=== PATIENT | female | born 2000 | race Caucasian/White ===

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

== ENCOUNTER 2020-01-19 18:39 | Emergency (ER) | payer BC, OTHER ==
[2020-01-19] MEDS ORDERED: Lactated Ringers 1,000 ML IV ONE (19:19)
[2020-01-19] MEDS ORDERED: Ketorolac 30 MG/ML SDV IVPUSH ONE (19:19)
--- NOTE | 2020-01-19 19:36 | EDM.PDOC ---
ED HPI GENERAL MEDICAL PROBLEM - General Chief Complaint: Respiratory Problem Stated Complaint: FLU SYMPTOMS Time Seen by Provider: 01/19/20 18:54 - History of Present Illness INITIAL COMMENTS - FREE TEXT/NARRATIVE: 19-year-old female with minimal past medical problems presenting with over 1 week of cough shortness of breath myalgias chills nausea vomiting and diarrhea associated with a burning epigastric pain. Symptoms constant and steadily worsening no syncope or near syncope. 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 History: Reports: Endometriosis Other DINING CHAIR SEAT CUSHION TRIMMER History: "Suspected endometriosis" Psychiatric History: Reports: Depression - Infectious Disease History Infectious Disease History: Reports: Chicken Pox - Past Surgical History HEENT Surgical History: Reports: Myringotomy w Tube(s) Social & Family History - Family History Family Medical History: Noncontributory - Tobacco Use Smoking Status *Q: Current Every Day Smoker Years of Tobacco use: 7 Packs/Tins Daily: 1 - Caffeine Use Caffeine Use: Reports: Coffee - Recreational Drug Use Recreational Drug Use: Yes Recreational Drug Type: Reports: Marijuana/Hashish Recreational Drug Use Frequency: Daily ED ROS GENERAL - Review of Systems Review Of Systems: See Below Free Text/Narrative/Comment: General: Per HPI Skin: No rash. Eyes: No vision problems. ENT: No sore throat. Neck: No neck stiffness. Respiratory: Per HPI Cardiac: No chest pain. Gastrointestinal: Per HPI Urinary: No dysuria. Musculoskeletal: No myalgias/arthralgias. Neurologic: No headache. ED EXAM, GENERAL - Physical Exam Exam: See Below Free Text/Narrative:: General Appearance: No acute distress, appears comfortable Skin: No rash HEENT: Normocephalic/atraumatic, sclera anicteric, mucous membranes moist Neck: Normal range of motion Chest and Lungs: Bilateral breath sounds, clear to auscultation Cardiovascular: Mildly tachycardic rate and rhythm, no murmur Abdomen: Soft, non-tender Back: Normal Musculoskeletal: No edema or tenderness Neurologic: Awake, alert, no obvious deficits, moving all extremities Psychiatric: Appropriate, cooperative Course - Vital Signs Last Recorded V/S: Last Vital Signs Temp 97.1 F 01/19/20 18:54 Pulse 118 H 01/19/20 18:54 Resp 18 01/19/20 18:54 BP 156/107 H 01/19/20 18:54 Pulse Ox 96 01/19/20 18:54 - Orders/Labs/Meds Orders: Active Orders 24 hr Category Date Time Status CORONAVIRUS COVID-19 PCR PH[facility] Stat Lab 01/19/20 19:36 Received Labs: Laboratory Tests 01/19/20 01/19/20 01/19/20 Range/Units 19:36 19:53 19:53 WBC 10.84 (4.0-11.0) K/uL RBC 5.07 (4.30-5.90) M/uL Hgb 15.4 (12.0-16.0) g/dL Hct 45.9 (36.0-46.0) % MCV 90.5 (80.0-98.0) fL MCH 30.4 (27.0-32.0) pg MCHC 33.6 (31.0-37.0) g/dL RDW Std Deviation 45.3 (28.0-62.0) fl RDW Coeff of Skyler 14 (11.0-15.0) % Plt Count 319 (150-400) K/uL MPV 9.70 (7.40-12.00) fL Neut % (Auto) 55.2 (48.0-80.0) % Lymph % (Auto) 37.4 (16.0-40.0) % [place] % (Auto) 6.8 (0.0-15.0) % Eos % (Auto) 0.4 (0.0-7.0) % Baso % (Auto) 0.2 (0.0-1.5) % Neut # (Auto) 6.0 H (1.4-5.7) K/uL Lymph # (Auto) 4.1 H (0.6-2.4) K/uL [place] # (Auto) 0.7 (0.0-0.8) K/uL Eos # (Auto) 0.0 (0.0-0.7) K/uL Baso # (Auto) 0.0 (0.0-0.1) K/uL Nucleated RBC % 0.0 /100WBC Nucleated RBCs # 0 K/uL Sodium 139 (136-145) mmol/L Potassium 3.9 (3.5-5.1) mmol/L Chloride 103 (98-107) mmol/L Carbon Dioxide 25.7 (21.0-32.0) mmol/L BUN 7 (7.0-18.0) mg/dL Creatinine 0.8 (0.6-1.0) mg/dL Est Cr Clr Drug Dosing 100.94 mL/min Estimated GFR (MDRD) > 60.0 ml/min Glucose 87 (74-106) mg/dL Calcium 9.8 (8.5-10.1) mg/dL Magnesium (1.8-2.4) mg/dL Total Bilirubin 1.2 H (0.2-1.0) mg/dL AST 15 (15-37) IU/L ALT 27 (14-63) IU/L Alkaline Phosphatase 54 (46-116) U/L Total Protein 8.3 H (6.4-8.2) g/dL Albumin 4.2 (3.4-5.0) g/dL Globulin 4.1 H (2.6-4.0) g/dL Albumin/Globulin Ratio 1.0 (0.9-1.6) Lipase 85 (73-393) U/L Urine Color Urine Appearance Urine pH (5.0-8.0) Ur Specific [place] (1.001-1.035) Urine Protein (NEGATIVE) mg/dL Urine Glucose (UA) (NEGATIVE) mg/dL Urine Ketones (NEGATIVE) mg/dL Urine Occult Blood (NEGATIVE) Urine Nitrite (NEGATIVE) Urine Bilirubin (NEGATIVE) Urine Urobilinogen (<2.0) EU/dL Ur Leukocyte Esterase (NEGATIVE) Urine RBC (0-2/HPF) Urine WBC (0-5/HPF) Ur Epithelial Cells (NONE-FEW) Amorphous Sediment (NEGATIVE) Urine Bacteria (NEGATIVE) Urine Mucus (NONE-MOD) Urine HCG, Qual (NEGATIVE) SARS CoV-2 RNA Rapid CARMELINA NEGATIVE (NEGATIVE) 01/19/20 01/19/20 01/19/20 Range/Units 19:53 21:32 21:32 WBC (4.0-11.0) K/uL RBC (4.30-5.90) M/uL Hgb (12.0-16.0) g/dL Hct (36.0-46.0) % MCV (80.0-98.0) fL MCH (27.0-32.0) pg MCHC (31.0-37.0) g/dL RDW Std Deviation (28.0-62.0) fl RDW Coeff of Skyler (11.0-15.0) % Plt Count (150-400) K/uL MPV (7.40-12.00) fL Neut % (Auto) (48.0-80.0) % Lymph % (Auto) (16.0-40.0) % [place] % (Auto) (0.0-15.0) % Eos % (Auto) (0.0-7.0) % Baso % (Auto) (0.0-1.5) % Neut # (Auto) (1.4-5.7) K/uL Lymph # (Auto) (0.6-2.4) K/uL [place] # (Auto) (0.0-0.8) K/uL Eos # (Auto) (0.0-0.7) K/uL Baso # (Auto) (0.0-0.1) K/uL Nucleated RBC % /100WBC Nucleated RBCs # K/uL Sodium (136-145) mmol/L Potassium (3.5-5.1) mmol/L Chloride (98-107) mmol/L Carbon Dioxide (21.0-32.0) mmol/L BUN (7.0-18.0) mg/dL Creatinine (0.6-1.0) mg/dL Est Cr Clr Drug Dosing mL/min Estimated GFR (MDRD) ml/min Glucose (74-106) mg/dL Calcium (8.5-10.1) mg/dL Magnesium 2.0 (1.8-2.4) mg/dL Total Bilirubin (0.2-1.0) mg/dL AST (15-37) IU/L ALT (14-63) IU/L Alkaline Phosphatase (46-116) U/L Total Protein (6.4-8.2) g/dL Albumin (3.4-5.0) g/dL Globulin (2.6-4.0) g/dL Albumin/Globulin Ratio (0.9-1.6) Lipase (73-393) U/L Urine Color YELLOW Urine Appearance SLT CLOUDY Urine pH 7.5 (5.0-8.0) Ur Specific [place] 1.015 (1.001-1.035) Urine Protein NEGATIVE (NEGATIVE) mg/dL Urine Glucose (UA) NEGATIVE (NEGATIVE) mg/dL Urine Ketones 15 H (NEGATIVE) mg/dL Urine Occult Blood NEGATIVE (NEGATIVE) Urine Nitrite NEGATIVE (NEGATIVE) Urine Bilirubin NEGATIVE (NEGATIVE) Urine Urobilinogen 1.0 (<2.0) EU/dL Ur Leukocyte Esterase SMALL H (NEGATIVE) Urine RBC 0-2 (0-2/HPF) Urine WBC 4-6 (0-5/HPF) Ur Epithelial Cells MODERATE (NONE-FEW) Amorphous Sediment LIGHT (NEGATIVE) Urine Bacteria 1+ H (NEGATIVE) Urine Mucus LIGHT (NONE-MOD) Urine HCG, Qual NEGATIVE (NEGATIVE) SARS CoV-2 RNA Rapid CARMELINA (NEGATIVE) Meds: Medications Discontinued Medications Generic Name Dose Route Start Last Admin Trade Name Freq PRN Reason Stop Dose Admin Lactated Ringer's 1,000 mls @ 999 mls/hr 01/19/20 19:19 01/19/20 20:13 Ringers, Lactated IV 01/19/20 20:19 999 mls/hr .BOLUS ONE Administration Ketorolac Tromethamine 15 mg 01/19/20 19:19 01/19/20 20:13 Toradol IVPUSH 01/19/20 19:20 15 mg ONETIME ONE Administration Ondansetron HCl 4 mg 01/19/20 20:39 01/19/20 21:12 Zofran IVPUSH 01/19/20 20:40 4 mg ONETIME ONE Administration Departure - Departure Time of Disposition: 22:57 Disposition: Home, Self-Care 01 Condition: Good Clinical Impression: Suspected COVID-19 virus infection - Discharge Information *PRESCRIPTION DRUG MONITORING PROGRAM REVIEWED*: Not Applicable *COPY OF PRESCRIPTION DRUG MONITORING REPORT IN PATIENT BREEZY: Not Applicable Prescriptions: Ondansetron [Zofran ODT] 4 mg PO TID PRN #20 tab.dis PRN Reason: nausea and vomiting Instructions: COVID-19 Frequently Asked Questions, Vomiting, Adult Referrals: Jacinta Stinson DO [Primary Care Provider] - 3 Days Forms: ED Department Discharge Additional Instructions: Though your coronavirus test here was negative. However, the rapid test is less accurate. Please presume that you have coronavirus until you receive the results of your confirmatory test which was sent to the state lab. Please do your best to stay hydrated you can use the Zofran as you need to for nausea or vomiting. If your breathing worsens or you have any other new symptoms or concern you please call your primary care doctor return to ER. The following information is given to patients seen in the emergency department who are being discharged to home. This information is to outline your options for follow-up care. We provide all patients seen in our emergency department with a follow-up referral. The need for follow-up, as well as the timing and circumstances, are variable depending upon the specifics of your emergency department visit. If you don't have a primary care physician on staff, we will provide you with a referral. We always advise you to contact your personal physician following an emergency department visit to inform them of the circumstance of the visit and for follow-up with them and/or the need for any referrals to a consulting specialist. The emergency department will also refer you to a specialist when appropriate. This referral assures that you have the opportunity for follow-up care with a specialist. All of these measure are taken in an effort to provide you with optimal care, which includes your follow-up. Under all circumstances we always encourage you to contact your private physician who remains a resource for coordinating your care. When calling for follow-up care, please make the office aware that this follow-up is from your recent emergency room visit. If for any reason you are refused follow-up, please contact the [facility] Emergency Department at and asked to speak to the emergency department charge nurse. Sepsis Event Note (ED) - Evaluation Sepsis Screening Result: No Definite Risk - Focused Exam Vital Signs: Vital Signs Temp Pulse Resp BP Pulse Ox 01/19/20 18:54 97.1 F 118 H 18 156/107 H 96 - My Orders Last 24 Hours: My Active Orders 01/19/20 19:36 CORONAVIRUS COVID-19 PCR PHL Stat - Assessment/Plan Last 24 Hours: My Active Orders 01/19/20 19:36 CORONAVIRUS COVID-19 PCR PHL Stat Assessment:: Nontoxic-appearing 19-year-old female presenting with signs and symptoms that are consistent with coronavirus infection. The patient had a negative rapid test several days ago she may simply not been converted yet or had a negative test. Rapid in-state test ordered here CBC CMP lipase as well. Patient's chest x-ray is negative. Her rapid COVID is negative but I do have a strong clinical suspicion for COVID and the patient was told to presume she has COVID until her confirmatory swab comes back from the state lab. Patient's labs are unremarkable with the exception of an elevated bilirubin this prompted a right upper quadrant ultrasound which is normal. Patient provided with a prescription for Zofran and strict return precautions discussed and understood.
--- NOTE | 2020-01-19 19:57 | CR ---
Chest: Portable view of the chest was obtained. Comparison: Prior chest x-ray of 06/28/16. Heart size and mediastinum are normal. Lungs are clear with no acute parenchymal change. Bony structures are grossly intact. Impression: 1. Nothing acute is seen on portable chest x-ray. Diagnostic code #1 Study was dictated in MDT
[2020-01-19 20:27] LABS: BLOOD UREA NITROGEN,BUN 7 mg/dL (7.0-18.0); CARBON DIOXIDE,CO2 25.7 mmol/L (21.0-32.0); CHLORIDE,CL 103 mmol/L (98-107); GLUCOSE RANDOM 87 mg/dL (74-106); LIPASE 85 U/L (73-393); POTASSIUM,K 3.9 mmol/L (3.5-5.1); SODIUM,NA 139 mmol/L (136-145)
[2020-01-19] MEDS ORDERED: Ondansetron 4 MG/2 ML SDV IVPUSH ONE (20:39)
--- NOTE | 2020-01-19 22:38 | US ---
INDICATION: Epigastric pain and vomiting, elevated bilirubin TECHNIQUE: Ultrasound abdomen limited. Sonographic images of the right upper quadrant were obtained using veras-scale and color Doppler images. COMPARISON: None FINDINGS: Liver: The liver parenchyma is normal in echotexture. Gallbladder: No gallstones or sludge seen in the lumen. The gallbladder wall is normal in appearance. No pericholecystic fluid is present. No sonographic [place] sign is present. Common bile duct: 4 mm. No intrahepatic biliary ductal dilatation seen. Pancreas: The visualized portions of the pancreatic head and body are normal in appearance. Right Kidney: 10.5 cm. No hydronephrosis or ureterectasis is seen. Vascular: The visualized abdominal aorta and IVC are unremarkable. The visualized portal vein is patent with normal anterograde flow. IMPRESSION: 1. The right upper quadrant is unremarkable in appearance. Dictated by Abner Dudley MD @ 01/19/2020 10:36:18 PM Dictated by: Abner Dudley MD @ 01/19/2020 22:36:22 (Electronically Signed)
[2020-01-19 23:24] VITALS: BP 142/75; PULSE 72
== END 2020-01-19 23:24 | disposition home or self-care (01) ==
LOC: MW.ED 18:39
DX: R06.02 Shortness of breath (principal); R05 Cough; R10.13 Epigastric pain; R11.2 Nausea with vomiting, unspecified; R19.7 Diarrhea, unspecified; J45.909 Unspecified asthma, uncomplicated; F17.210 Nicotine dependence, cigarettes, uncomplicated; Z20.828 Contact with and (suspected) exposure to other viral communicable diseases
CPT/HCPCS: 36415; 71045; 76705; 80053; 81001; 81025; 83690; 83735; 85025; 87635; 96361; 96374; 96375; 99284; J1885; J2405; J7120; 99283; U0002

== ENCOUNTER 2023-01-02 02:02 | Inpatient (IN) | payer BC ==
[2023-01-02] MEDS ORDERED: Water For Irrigation,Sterile 1,000 ML Container IRR PRN (03:37)
[2023-01-02] MEDS ORDERED: Methylergonovine 0.2 MG/1 ML Amp IM PRN (03:37)
[2023-01-02] MEDS ORDERED: Tranexamic Acid IN NACL,ISO-OS 1,000 MG in Premix Bag 1 BAG IV PRN ×2 (03:37)
[2023-01-02] MEDS ORDERED: Sodium Chloride 0.9% 20 ML SDV IV PRN (03:37)
[2023-01-02] MEDS ORDERED: Misoprostol 200 MCG Tab PO PRN (03:37)
[2023-01-02] MEDS ORDERED: Lidocaine 1% 50 ML MDV INJECT PRN (03:37)
[2023-01-02] MEDS ORDERED: Carboprost Tromethamine 250 MCG/1 mL Vial IM PRN (03:37)
[2023-01-02] MEDS ORDERED: Sodium Chloride 0.9% 10 ML Syringe FLUSH PRN (03:37)
[2023-01-02] MEDS ORDERED: Sodium Chloride 0.9% 2.5 ML Syringe FLUSH PRN (03:37)
[2023-01-02] MEDS ORDERED: Nalbuphine 10 MG/0.5 ML Syringe IVPUSH SCH (03:45)
[2023-01-02] MEDS ORDERED: Oxytocin/0.9 % Sodium Chloride 30 UNIT/500 ML BAG IV SCH ×2 (03:45→13:15)
[2023-01-02] MEDS: Lactated Ringers 1,000 ML IV SCH ×5 (04:00→21:17)
[2023-01-02] MEDS ORDERED: Nalbuphine 10 MG/0.5 ML Syringe IVPUSH PRN ×2 (04:39→07:03)
[2023-01-02] MEDS: Ondansetron 4 MG/2 ML SDV IVPUSH PRN ×2 (04:51→11:06)
[2023-01-02 05:07] LABS: HEMATOCRIT 33.2 % (36.0-46.0); HEMOGLOBIN 10.8 g/dL (12.0-16.0); MEAN CORPUSCULAR HEMOGLOBIN 27.1 pg (27.0-32.0); MEAN CORPUSCULAR HGB CONC 32.5 g/dL (31.0-37.0); MEAN CORPUSCULAR VOLUME 83.2 fL (80.0-98.0); MEAN PLATELET VOLUME 9.3 fL (7.40-12.00); RED BLOOD CELL COUNT 3.99 M/uL (4.30-5.90); WHITE BLOOD CELL COUNT,WBC 15.14 K/uL (4.0-11.0)
[2023-01-02] MEDS ORDERED: ePHEDrine 50 MG/ML SDV IVPUSH PRN ×2 (08:34)
[2023-01-02] MEDS ORDERED: Ropivacaine HCl/PF 400 MG in Premix Bag 1 BAG EPIDUR SCH (08:45)
[2023-01-02] MEDS ORDERED: Ropivacaine/PF 400 MG/200 ML PCA ONE (08:46)
[2023-01-02] MEDS ORDERED: Dexmedetomidine 200 MCG/2 ML SDV ONE (08:46)
[2023-01-02] MEDS ORDERED: Terbutaline 1 MG/ML SDV SUBCUT PRN (13:08)
[2023-01-02] MEDS: Phenylephrine HCl 0.5 MG/5 ML AMP IVPUSH PRN ×2 (19:42→19:45)
[2023-01-03] MEDS ORDERED: Acetaminophen 500 MG Tab PO PRN (01:15)
[2023-01-03] MEDS ORDERED: Bisacodyl 10 MG Supp RECTAL PRN (01:15)
[2023-01-03] MEDS ORDERED: Lanolin 100% Cream 7 GM Tube TOP PRN (01:15)
[2023-01-03] MEDS ORDERED: Ibuprofen 400 MG Tab PO PRN (01:15)
[2023-01-03] MEDS ORDERED: oxyCODONE 5 MG Tab PO PRN (01:15)
[2023-01-03 01:29] LABS: PH,UMBILICAL ARTERIAL 7.241 (7.18-7.38); PH,UMBILICAL VENOUS 7.277 (7.25-7.45)
[2023-01-03] MEDS: Witch Hazel Medicated Pads 40/Jar TOP PRN (02:04)
[2023-01-03] MEDS: Benzocaine/Menthol 20%-0.5% Spray 78 GM Cannister TOP PRN (02:05)
[2023-01-03] MEDS: Acetaminophen 500 MG Tab PO PRN ×2 (02:06→15:16)
[2023-01-03] MEDS: Ibuprofen 800 MG Tab PO PRN ×3 (02:48→19:58)
[2023-01-03] MEDS: Docusate Sodium 100 MG Cap PO PRN ×2 (09:41→21:17)
[2023-01-04] MEDS: Witch Hazel Medicated Pads 40/Jar TOP PRN ×3 (05:01→12:45)
[2023-01-04] MEDS: Acetaminophen 500 MG Tab PO PRN (05:02)
[2023-01-04 06:05] LABS: HEMATOCRIT 27.2 % (36.0-46.0); HEMOGLOBIN 8.7 g/dL (12.0-16.0)
[2023-01-04] MEDS: Ibuprofen 800 MG Tab PO PRN (09:53)
[2023-01-04] MEDS: Docusate Sodium 100 MG Cap PO PRN (09:54)
[2023-01-04] MEDS: Benzocaine/Menthol 20%-0.5% Spray 78 GM Cannister TOP PRN ×2 (12:44→12:45)
[2023-01-04 13:13] VITALS: BP 125/72; PULSE 92
== END 2023-01-04 13:15 | disposition home or self-care (01) | DRG 560 ==
LOC: MW.OBCHECK 02:02 → MW.OB 02:09 → MW.OBCHECK 03:38 → OBSVTOIN 01-03 00:44 → MW.OB 01-03 04:05
PROVIDERS: ADMIT Obstetrics & Gynecology; ATTEND Obstetrics & Gynecology
PROC: 10E0XZZ Delivery of Products of Conception, External Approach (ICD-10-PCS; principal; 2023-01-03)
PROC: 0KQM0ZZ Repair Perineum Muscle, Open Approach (ICD-10-PCS; 2023-01-03)
PROC: 10H07YZ Insertion of Other Device into Products of Conception, Via Natural or Artificial Opening (ICD-10-PCS; 2023-01-03)
PROC: 3E0R3BZ Introduction of Anesthetic Agent into Spinal Canal, Percutaneous Approach (ICD-10-PCS; 2023-01-03)
PROC: 00HU33Z Insertion of Infusion Device into Spinal Canal, Percutaneous Approach (ICD-10-PCS; 2023-01-03)
DX: O48.0 Post-term pregnancy (principal); Z37.0 Single live birth; O70.1 Second degree perineal laceration during delivery; Z3A.40 40 weeks gestation of pregnancy
CPT/HCPCS: 36415; 51702; 59025; 59409; 82803; 85014; 85018; 85027; 86592; 86850; 86900; 86901; A9270-GY; J2300; J2371; J2405; J2590; J2795; J3490; J7120